=== PATIENT | male | born 1995 | race Caucasian/White ===

== ENCOUNTER 2023-03-12 09:40 | Emergency (ER) | payer BC ==
[2023-03-12] MEDS ORDERED: Fluorescein 1 MG Ophth Strip EYELF ONE (10:07)
[2023-03-12] MEDS ORDERED: Proparacaine 0.5% Ophth Soln 15 ML Bottle EYELF ONE (10:07)
== END 2023-03-12 10:40 | disposition home or self-care (01) ==
LOC: JD.ED 09:40
DX: S05.02XA Injury of conjunctiva and corneal abrasion without foreign body, left eye, initial encounter (principal); F17.210 Nicotine dependence, cigarettes, uncomplicated; W22.8XXA Striking against or struck by other objects, initial encounter; Y93.H2 Activity, gardening and landscaping
CPT/HCPCS: 99283; J3490